=== PATIENT | male | born 1955 | race Caucasian/White ===

== ENCOUNTER 2019-05-31 09:18 | Emergency (ER) | payer MEDICARE, MEDICAID ==
[~2019-05-31] VITALS: Ht 162.6 cm; Wt 60.5 kg
[~2019-05-31 09:18] MED LIST: ATEN50TA8 PO; CARI350T PO; LISI10TA11 PO; LOVA40TA PO; TRAM50TA1 PO
[2019-05-31 09:25] VITALS: BP 129/79
--- NOTE | 2019-05-31 10:00 | NUR ---
Patient ambulated to bed 10. RN evaluating patient at bedside.
--- NOTE | 2019-05-31 10:20 | NUR ---
PT C/O SQUEEZING LOWER BACK PAIN. PAIN A 06/15. RECEIVES MONTHLY TORADOL SHOTS BUT HAS NOT HAD ONE IN 2 MONTHS. HAD SURGERY ON HIS BACK AND HAS METAL IN THERE NOW. MEDHX: HIGH CHOLESTEROL, HIGH BP, ARTHRITIS. RX: DENIES
--- NOTE | 2019-05-31 10:58 | NUR ---
Patient being evaluated by Dr. Stovall at bedside.
[2019-05-31] MEDS ORDERED: KETOROLAC 60 MG/2 ML VIAL IM ONE (11:00)
[2019-05-31 11:35] VITALS: BP 122/84
--- NOTE | 2019-05-31 11:35 | NUR ---
Patient discharged with v/s stable. Written and verbal after care instructions given and explained. Patient verbalized understanding. Ambulatory with steady gait. All questions addressed prior to discharge. Advised to follow up with PMD.
== END 2019-05-31 11:35 | disposition home or self-care (01) ==
LOC: MED 09:18
DX: M54.9 Dorsalgia, unspecified (principal); I10 Essential (primary) hypertension; Z79.899 Other long term (current) drug therapy
CPT/HCPCS: 96372; 99283; J1885